=== PATIENT | female | born 1985 | race African-American/Black ===

== ENCOUNTER 2022-07-21 17:42 | Observation (INO) | payer MEDICAID ==
[~2022-07-21] VITALS: Ht 172.7 cm; Wt 87.5 kg
[2022-07-21] MEDS ORDERED: ACETAMINOPHEN 500MG TABLET PO PRN (20:15)
[2022-07-21] MEDS: LACTATED RINGERS 1,000 ML IV SCH (20:19)
[2022-07-21] MEDS ORDERED: LABETALOL HCL 100MG TABLET PO ONE (21:15)
[2022-07-21 21:50] LABS: CLARITY URINE CLEAR (CLEAR); COLOR URINE YELLOW (YELLOW); KETONES URINE NEGATIVE (NEGATIVE); LEUKOCYTE ESTERASE URINE NEGATIVE (NEGATIVE); NITRITE URINE NEGATIVE (NEGATIVE); OCCULT BLOOD URINE NEGATIVE (NEGATIVE); PH URINE 6.5 (4.5-8.0); PROTEIN URINE NEGATIVE (NEGATIVE); SPECIFIC GRAVITY URINE 1.006 (1.005-1.030)
[2022-07-22] MEDS ORDERED: BUTORPHANOL TARTRATE 2 MG/ML VIAL IV PRN (00:15)
[2022-07-22 00:29] VITALS: BP 158/87
[2022-07-22] MEDS: LACTATED RINGERS 1,000 ML IV SCH (04:23)
[2022-07-22] MEDS ORDERED: ONDANSETRON HCL 4MG/2ML INJ IV NR (06:30)
[2022-07-22] MEDS ORDERED: LACTATED RINGERS 1,000 ML IV SCH (12:00)
== END 2022-07-22 13:00 | disposition home or self-care (01) ==
LOC: 8 EST LDRP 17:42
PROVIDERS: ADMIT Obstetrics & Gynecology; ATTEND Obstetrics & Gynecology
DX: O26.893 Other specified pregnancy related conditions, third trimester (principal); R10.2 Pelvic and perineal pain; O60.03 Preterm labor without delivery, third trimester; Z3A.33 33 weeks gestation of pregnancy
CPT/HCPCS: 59025; 76815; 76818; 81003; 96361; 96374; 96375; G0378; J0595; J2405; 96360; 99281; J7120

== ENCOUNTER 2022-07-28 19:18 | Inpatient (IN) | payer MEDICAID ==
[~2022-07-28] VITALS: Ht 175.3 cm; Wt 89.8 kg
[2022-07-28] MEDS ORDERED: LABE100T9 PO (19:56)
[2022-07-28] MEDS ORDERED: PNV1TABL76 PO (19:56)
[2022-07-28 20:59] LABS: BASOPHILS % 0.2 % (0.0-2.0); EOSINOPHILS % 0.5 % (0.0-5.0); HEMATOCRIT. 27.3 % (36.0-48.0); HEMOGLOBIN. 9.4 g/dL (12.0-16.0); LYMPHOCYTES % 19.6 % (20.0-50.0); MEAN CORPUSCULAR HEMOGLOBIN 31.5 pg (28.0-32.0); MEAN CORPUSCULAR VOLUME 91.5 fL (81.0-99.0); MEAN PLATELET VOLUME 9.1 fl (7.4-10.4); NEUTROPHILS % 70.7 % (40.0-76.0); PLATELET 199 x1000/uL (130-400); RED BLOOD CELL COUNT 2.98 mill/uL (4.2-5.4); RED CELL DISTRIBUTION WIDTH 13.4 % (11.6-14.6)
[2022-07-28 21:10] LABS: CHLORIDE 108 mEq/L (98-107)
[2022-07-28 21:44] LABS: PROTHROMBIN TIME 10.8 sec (9.6-11.0)
[2022-07-28] MEDS ORDERED: OXYTOCIN 30 UNITS/500ML NS PMX 500 ML IV SCH (22:00)
[2022-07-28] MEDS ORDERED: LIDOCAINE HCL 1% 20ML VIAL (Pyxis) INJ INFIL SCH (22:00)
[2022-07-28] MEDS ORDERED: CARBOPROST TROMETHAMINE 250 MCG/ML AMPUL IM PRN (22:00)
[2022-07-28] MEDS ORDERED: METHYLERGONOVINE MALEATE 0.2 MG/ML IM PRN (22:00)
[2022-07-28] MEDS ORDERED: NALOXONE HCL 0.4 MG/ML 1ML VIAL IM PRN (22:00)
[2022-07-28] MEDS ORDERED: PENICILLIN G POTASSIUM 5 MMU in DEXT 5% WATER 100 ML IV SCH (22:00)
[2022-07-28] MEDS ORDERED: LACTATED RINGERS 1,000 ML IV SCH (22:00)
[2022-07-28] MEDS: MISOPROSTOL 100MCG TABLET VG PRN (22:06)
[2022-07-28] MEDS: BUTORPHANOL TARTRATE 2 MG/ML VIAL IV PRN (23:04)
[2022-07-29] MEDS: BUTORPHANOL TARTRATE 2 MG/ML VIAL IV PRN ×2 (02:24→06:44)
[2022-07-29] MEDS: PENICILLIN G POTASSIUM 2.5 MMU in DEXTROSE 5% WATER 50 ML IV SCH ×4 (02:32→15:27)
[2022-07-29] MEDS: MISOPROSTOL 100MCG TABLET VG PRN ×2 (02:36→06:50)
[2022-07-29] MEDS ORDERED: LABETALOL HCL 100MG TABLET PO SCH ×2 (09:00→17:56)
[2022-07-29] MEDS ORDERED: ROPIVACAINE HCL/PF EPIDURAL 200 ML EPI SCH (10:00)
[2022-07-29] MEDS ORDERED: ROPIVACAINE HCL/PF EPIDURAL 200 ML EPI ONE (10:01)
[2022-07-29] MEDS ORDERED: FENTANYL CITRATE/PF 50MCG/ML 2ML VIAL ONE ×2 (10:01→16:59)
[2022-07-29] MEDS ORDERED: TERBUTALINE SULFATE 1MG/ML VIAL SUBCUT SCH (13:00)
[2022-07-29] MEDS ORDERED: EPHEDRINE SULFATE 50MG/ML VIAL ONE (15:00)
[2022-07-29] MEDS ORDERED: LIDOCAINE HCL 2%/EPINEPHRINE 1:100,000 20 ML VIAL INFIL ONE (15:00)
[2022-07-29 15:53] LABS: COLOR URINE YELLOW (YELLOW)
[2022-07-29 15:54] LABS: CLARITY URINE CLEAR (CLEAR); KETONES URINE NEGATIVE (NEGATIVE); LEUKOCYTE ESTERASE URINE NEGATIVE (NEGATIVE); NITRITE URINE NEGATIVE (NEGATIVE); OCCULT BLOOD URINE NEGATIVE (NEGATIVE); PROTEIN URINE NEGATIVE (NEGATIVE); SPECIFIC GRAVITY URINE 1.018 (1.005-1.030); UROBILINOGEN URINE 0.2 E.U./dL (0.2-1.0)
[2022-07-29 15:57] LABS: *AMPHETAMINES SCREEN URINE NEGATIVE (NEGATIVE); *BARBITURATES SCREEN URINE NEGATIVE (NEGATIVE); *BENZODIAZEPINES SCREEN URINE NEGATIVE (NEGATIVE); *COCAINE SCREEN URINE NEGATIVE (NEGATIVE); CANNABINOID URINE SCREEN NEGATIVE (NEGATIVE); METHADONE URINE SCREEN NEGATIVE (NEGATIVE); OPIATES URINE SCREEN NEGATIVE (NEGATIVE); PHENCYCLIDINE URINE SCREEN NEGATIVE (NEGATIVE)
[2022-07-29] MEDS: ONDANSETRON HCL 4MG/2ML INJ IV PRN ×2 (16:24→21:46)
[2022-07-29] MEDS ORDERED: OXYTOCIN 30 UNITS/500ML NS PMX 500 ML IV ONE (17:45)
[2022-07-29] MEDS ORDERED: IBUPROFEN 800MG TABLET PO NR (20:15)
[2022-07-29] MEDS ORDERED: ACETAMINOPHEN WITH CODEINE 300/30MG TABLET PO NR ×2 (21:30→23:00)
[2022-07-29] MEDS: LABETALOL HCL 200MG TABLET PO SCH (22:32)
[2022-07-29] MEDS ORDERED: BENZOCAINE/LANOLIN/ALOE VERA SPRAY TOP PRN ×2 (23:15)
[2022-07-29] MEDS ORDERED: OXYCODONE HCL/ACETAMINOPHEN 5/325MG TABLET PO PRN ×2 (23:15)
[2022-07-29] MEDS ORDERED: OXYTOCIN 30 UNITS/500ML NS PMX 500 ML IV SCH (23:15)
[2022-07-29] MEDS ORDERED: DIPHENHYDRAMINE 25MG CAPSULE PO PRN ×2 (23:15)
[2022-07-29] MEDS ORDERED: HEMORRHOIDAL SUPP PR PRN ×2 (23:15)
[2022-07-29] MEDS ORDERED: GLYCERIN/WITCH HAZEL LEAF MEDICATED PAD TOP PRN ×2 (23:15)
[2022-07-29] MEDS ORDERED: MAGNESIUM 4 G PREMIX 100 ML IV ONE (23:15)
[2022-07-29] MEDS ORDERED: LANOLIN OINT 7GM TUBE TOP PRN ×2 (23:15)
[2022-07-29] MEDS ORDERED: BISACODYL 10MG SUPP PR PRN ×2 (23:15)
[2022-07-29] MEDS ORDERED: METHYLERGONOVINE MALEATE 0.2 MG/ML IM PRN ×2 (23:15)
[2022-07-29] MEDS ORDERED: IBUPROFEN 400MG TABLET PO PRN ×2 (23:15)
[2022-07-29] MEDS ORDERED: RHO(D) IMMUNE GLOBULIN 300 MCG/SYR IM PRN ×2 (23:15)
[2022-07-29] MEDS: OXYCODONE HCL/ACETAMINOPHEN 5/325MG TABLET PO PRN (23:33)
[2022-07-30 01:15] VITALS: BP 147/82
[2022-07-30] MEDS: IBUPROFEN 800MG TABLET PO PRN ×3 (03:28→21:15)
[2022-07-30 03:30] VITALS: BP 131/76
[2022-07-30] MEDS: OXYCODONE HCL/ACETAMINOPHEN 5/325MG TABLET PO PRN ×5 (04:46→22:00)
[2022-07-30 06:30] VITALS: BP 126/76
[2022-07-30] MEDS: LABETALOL HCL 200MG TABLET PO SCH ×3 (06:42→17:17)
[2022-07-30 08:00] VITALS: BP 132/69
[2022-07-30] MEDS: MAGNESIUM/ALUMINUM HYDROXIDE/SIMETHICONE 30ML UDC PO SCH ×4 (08:32→21:15)
[2022-07-30] MEDS: FERROUS SULFATE 325MG TABLET PO SCH ×3 (08:32→17:17)
[2022-07-30] MEDS: PRENATAL VIT/FE FUMARATE/FA TABLET PO SCH (08:33)
[2022-07-30] MEDS: METHYLERGONOVINE MALEATE 0.2MG TABLET PO SCH ×3 (08:33→17:00)
[2022-07-30] MEDS: SIMETHICONE 80MG TABLET CHEW PO SCH ×4 (08:33→21:18)
[2022-07-30 08:36] LABS: BASOPHILS % 0.3 % (0.0-2.0); EOSINOPHILS % 0.1 % (0.0-5.0); HEMATOCRIT. 29.4 % (36.0-48.0); LYMPHOCYTES % 11.8 % (20.0-50.0); MEAN CORPUSCULAR HEMOGLOBIN 30.8 pg (28.0-32.0); MEAN CORPUSCULAR VOLUME 90.7 fL (81.0-99.0); MEAN PLATELET VOLUME 9.2 fl (7.4-10.4); MONOCYTES % 7.6 % (2.0-8.0); NEUTROPHILS % 80.2 % (40.0-76.0); PLATELET 200 x1000/uL (130-400); RED BLOOD CELL COUNT 3.24 mill/uL (4.2-5.4); RED CELL DISTRIBUTION WIDTH 13.6 % (11.6-14.6)
[2022-07-30] MEDS ORDERED: PRENATAL VIT/FE FUMARATE/FA TABLET PO SCH (09:00)
[2022-07-30] MEDS ORDERED: SIMETHICONE 80MG TABLET CHEW PO SCH (09:00)
[2022-07-30] MEDS ORDERED: FERROUS SULFATE 325MG TABLET PO SCH (09:00)
[2022-07-30] MEDS ORDERED: MAGNESIUM/ALUMINUM HYDROXIDE/SIMETHICONE 30ML UDC PO SCH (09:00)
[2022-07-30 16:00] VITALS: BP 144/79
[2022-07-30 20:00] VITALS: BP 115/68
[2022-07-30] MEDS ORDERED: DOCUSATE SODIUM 100MG CAPSULE PO SCH ×2 (21:00)
[2022-07-31 01:30] VITALS: BP 143/83
[2022-07-31] MEDS: OXYCODONE HCL/ACETAMINOPHEN 5/325MG TABLET PO PRN ×2 (01:32→06:57)
[2022-07-31] MEDS: LABETALOL HCL 200MG TABLET PO SCH ×3 (01:33→14:44)
[2022-07-31] MEDS: IBUPROFEN 800MG TABLET PO PRN (04:28)
[2022-07-31 04:30] VITALS: BP 134/71
[2022-07-31 08:00] VITALS: BP 152/89
[2022-07-31 08:08] LABS: HBSAG SCREEN Negative (Negative)
[2022-07-31] MEDS: FERROUS SULFATE 325MG TABLET PO SCH (08:42)
[2022-07-31] MEDS: PRENATAL VIT/FE FUMARATE/FA TABLET PO SCH (08:42)
[2022-07-31] MEDS: SIMETHICONE 80MG TABLET CHEW PO SCH (08:44)
[2022-07-31] MEDS ORDERED: IBUPROFEN 400MG TABLET PO PRN (12:15)
[2022-07-31 14:30] VITALS: BP 120/70
== END 2022-07-31 12:00 | disposition home or self-care (01) | DRG 560 ==
LOC: OBSVTOIN 19:18 → 8 EST LDRP 19:18 → 8EST 07-30 04:24
PROVIDERS: ADMIT Obstetrics & Gynecology; ATTEND Obstetrics & Gynecology
PROC: 10E0XZZ Delivery of Products of Conception, External Approach (ICD-10-PCS; principal; 2022-07-30)
PROC: 3E0R3BZ Introduction of Anesthetic Agent into Spinal Canal, Percutaneous Approach (ICD-10-PCS; 2022-07-30)
PROC: 00HU33Z Insertion of Infusion Device into Spinal Canal, Percutaneous Approach (ICD-10-PCS; 2022-07-30)
DX: O13.4 Gestational [pregnancy-induced] hypertension without significant proteinuria, complicating childbirth (principal); Z37.0 Single live birth; Z3A.37 37 weeks gestation of pregnancy
CPT/HCPCS: 36415; 76805; 76818; 80051; 80053; 80305; 81003; 84550; 85025; 85384; 86592; 86703; 86762; 86850; 86900; 87340; 87426; G0378; J0595; J2405; J2540; J2795; J3010; J3490; J7060; J2590